=== PATIENT | female | born 1955 | race Caucasian/White ===

== ENCOUNTER → 2024-01-07 10:35 | Outpatient (REF) | payer OTHER, SELFPAY | LOC: HWRAD 10:35 | PROVIDERS: ATTENDING PHYSICIAN Physician Assistant Medical | DX: Z12.31 Encounter for screening mammogram for malignant neoplasm of breast (principal); M85.80 Other specified disorders of bone density and structure, unspecified site | CPT/HCPCS: 77063; 77067; 77080 ==

== ENCOUNTER 2024-11-15 13:43 | Emergency (ER) | payer OTHER, SELFPAY ==
[2024-11-15 13:46] VITALS: BP 192/121
[2024-11-15 14:22] LABS: Hematocrit 41.2 % (37.0-47.0); Hemoglobin 14.2 g/dL (12.0-16.0); Mean Corp Hgb Conc. 34.5 g/dL (33.0-37.0); Mean Corpuscular Volume 88.4 fL (81.0-99.0); Nucleated Red Blood Cells % 0 %; Platelet Count 201 10^3/uL (130-400); Red Cell Dist. Width 12.6 % (11.5-14.5)
[2024-11-15 14:34] LABS: Urine Character Clear (Clear)
[2024-11-15 14:43] LABS: ALT (SGPT) 16 U/L (0-35); AST (SGOT) 23 U/L (14-36); Albumin 4.5 g/dl (3.5-5.0); Alkaline Phosphatase 101 U/L (38-126); Blood Urea Nitrogen 25 mg/dl (7-17); Calcium 10.1 mg/dl (8.4-10.2); Carbon Dioxide 24 mmol/L (22-30); Chloride 110 mmol/L (98-107); Glucose 108 mg/dl (70-99); Potassium 4.4 mmol/L (3.5-5.1); Sodium 139 mmol/L (135-145); Total Protein 7.8 g/dl (6.3-8.2); eGFR 48.39
[2024-11-15 16:34] VITALS: BP 176/82
--- NOTE | 2024-11-15 17:04 | ED.GENMED ---
History of Present Illness
General
Chief Complaint: Flank Pain
Time Seen by Provider: 11/15/24 16:30
History of Present Illness
History of Present Illness:
69-year-old female presents the emergency department for evaluation of right-sided flank pain that began earlier this morning. Feels comparable to past kidney stones. Has required lithotripsy and ureteral stents in the past for this. Denies any
nausea, vomiting, or diarrhea at this point. No hematuria or dysuria. No fevers or chills. Took ibuprofen with modest pain relief.
Past History
Past History
ED Past Medical History: HTN
ED Past Surgical History: Gynecological
Social History
Tobacco: Non-smoker
Personal:
Living: with family
Review of Systems
Review of Systems
Allergies reviewed?: Yes
All Other Systems: ROS reviewed and negative except as documented in HPI and ROS
Phy Exam
Physical Exam
Physical Exam:
GEN: Well appearing, NAD, WDWN
HEENT: Oral mucosa moist, no scleral icterus
Cardiac: Regular rate
Lung: No respiratory distress, no tachypnea
MSK: No gross deformity or injuries
Skin: Good color, no pallor or jaundice, no rashes
Neuro: AO x3, moves all extremities freely
Psych: Calm, cooperative
Course
Orders/Labs/Results
Orders:
Orders
11/15/24 13:48
IV Insert/Care/Rem.- Treatment PRN
11/15/24 14:11
Complete Blood Count/With Diff Urgent
Comprehensive Metabolic Panel Urgent
Urinalysis Reflex To Culture Urgent
Date Specimen was Collected: 11/15/24
Time Specimen was Collected: 13:48
Urine Microscopic Reflex Cult Urgent
Urine Culture Urgent
NILDA Source: U
Specimen Description:
Date Specimen was Collected: 11/15/24
Time Specimen was Collected: 13:48
11/15/24 17:04
CT Abd/pel Without Iv Or Oral Urgent
Comment:
Reason For Exam: R flank pain
11/15/24 17:05
Tamsulosin [Flomax] 0.4 mg PO NOW STA
11/15/24 20:47
Oxycodone/Acetaminophen [Percocet 5/325] 1 tablet PO NOW STA
Abnormal Lab Results
11/15/24
14:11
WBC 11.7 H 10^3/uL
(4.8-10.8)
MPV 11.5 H fL
(7.4-10.4)
Absolute Neuts (auto) 7.8 H 10^3/uL
(1.4-6.5)
Absolute Monos (auto) 1.1 H 10^3/uL
(0.1-0.6)
Monocytes % 9.7 H %
(1.7-9.3)
Chloride 110 H mmol/L
(98-107)
BUN 25 H mg/dl
(7-17)
Creatinine 1.2 H mg/dL
(0.6-1.0)
Glucose 108 H mg/dl
(70-99)
Ur Occult Blood Reflex 3+ A
(Negative)
Leukocyte Esterase Rfl 2+ A
(Negative)
Urine RBC 7-10 A /HPF
(0-2)
Urine Bacteria (Reflex) Moderate A
(Negative)
11/15/24 14:11
11/15/24 14:11
Vital Signs
Initial and Last Documented VS:
Initial Vital Signs
Temp Pulse Resp BP Pulse Ox
97.8 F 97 18 192/121 98
11/15/24 13:46 11/15/24 13:46 11/15/24 13:46 11/15/24 13:46 11/15/24 13:46
Last Documented Vital Signs
Temp Pulse Resp BP Pulse Ox
97.8 F 86 20 174/72 99
11/15/24 13:46 11/15/24 21:06 11/15/24 21:06 11/15/24 21:06 11/15/24 21:06
MDM/Problems Addressed
MDM/Problems Addressed:
Imaging reveals a 3.6 mm obstructing stone in the right UVJ. Patient's pain remained well-controlled in the ED. Discussed supportive care and expectant management
*Pulse Oximetry
SaO2: 99
Oxygen Mode of Delivery: Room air
Patient hypoxic: no
*Critical Care Note
Total Time (30-74mins, 75-104mins- exclusive of procedures): Not Applicable
ED Attending Note
-
Portions of this chart may have been created with voice recognition software.� Occasional wrong word or��sound alike� substitutions may have occurred due to the inherent limitations of voice recognition software.
Discharge Plan
Departure
Patient Disposition: Home (Routine Discharge)
Date of Disposition: 11/15/24
Time of Disposition: 20:38
Patient with high blood pressure during this ER visit?: No
Discharge Problem:
Ureterolithiasis
Instructions: Kidney Stones (DC)
Prescriptions:
New
tamsulosin [Flomax] 0.4 mg capsule
0.4 mg PO HS Qty: 10 0RF
ketorolac 10 mg tablet
10 mg PO Q8H PRN (Reason: Pain) Qty: 15 0RF
Rx Instructions:
maximum total duration of 5 days from all oral, intranasal, or parenteral formulations
oxycodone-acetaminophen [Percocet] 5-325 mg tablet
1 tab PO Q6HPRN PRN (Reason: pain) Qty: 10 0RF
No Action
lisinopril 20 MG tablet
30 mg PO DAILY
hydrochlorothiazide 25 MG tablet
25 mg PO DAILY
levothyroxine 112 MCG tablet
112 mcg PO DAILY
ibuprofen 800 MG tablet
800 mg PO Q6HPRN PRN (Reason: pain) Qty: 14 0RF
tamsulosin 0.4 MG capsule
0.4 mg PO DAILY Qty: 5 0RF
levofloxacin 500 MG tablet
500 mg PO DAILY Qty: 5 0RF
Referrals:
Gianna Cardona PA-C [Family Provider, Family Practice]
Interventions
Interventions:
*Risk Screen - Suicide Last Done: 11/15/24 13:46
*General Assessment Last Done: 11/15/24 16:32
*Neglect/Abuse Screening Last Done: 11/15/24 13:46
*Nursing Disposition Last Done: 11/15/24 21:06
YS-Pwebnc-Zutefedhvs Assessment Last Done: 11/15/24 16:32
ED-Female Genitourinary Assessment Last Done: 11/15/24 16:34
Discharge Date and Time
Discharge Date/Time: 11/15/24 21:58
Print Language: RUSSIAN
[2024-11-15] MEDS: FLOMAX 0.4 MG PO (17:15)
[2024-11-15] MEDS: PERCOCET 5/325 1 TABLET PO (21:00)
[2024-11-15 21:06] VITALS: BP 174/72
== END 2024-11-15 21:58 | disposition home or self-care (01) ==
LOC: EMR 13:43
PROVIDERS: Emergency Medicine; EMERGENCY PHYSICIAN Emergency Medicine; FAMILY PHYSICIAN Physician Assistant Medical
DX: N13.2 Hydronephrosis with renal and ureteral calculous obstruction (principal); I10 Essential (primary) hypertension; Z90.49 Acquired absence of other specified parts of digestive tract; Z90.710 Acquired absence of both cervix and uterus
CPT/HCPCS: 99284; 74176; 80053; 81003; 81015; 85025; 87086

== ENCOUNTER → 2025-01-09 10:02 | Outpatient (REF) | payer OTHER, SELFPAY | LOC: HWWDC 10:02 | PROVIDERS: ATTENDING PHYSICIAN Physician Assistant Medical | DX: Z12.31 Encounter for screening mammogram for malignant neoplasm of breast (principal) | CPT/HCPCS: 77063; 77067 ==

== ENCOUNTER → 2025-01-19 10:01 | Outpatient (REF) | payer OTHER, SELFPAY | LOC: PAVMRI 10:01 | PROVIDERS: ATTENDING PHYSICIAN Internal Medicine; FAMILY PHYSICIAN Physician Assistant Medical | DX: Q45.3 Other congenital malformations of pancreas and pancreatic duct (principal) | CPT/HCPCS: 74183; A9575 ==

== ENCOUNTER 2025-02-13 06:24 | Day surgery (SDC) | payer OTHER, SELFPAY | END 2025-02-13 12:14 | disposition home or self-care (01) | LOC: GI 06:24 | PROVIDERS: ATTENDING PHYSICIAN Internal Medicine | DX: Z12.11 Encounter for screening for malignant neoplasm of colon (principal); K64.9 Unspecified hemorrhoids; K57.30 Diverticulosis of large intestine without perforation or abscess without bleeding | CPT/HCPCS: G0121 ==